=== PATIENT | female | born 1990 | race Caucasian/White ===

== ENCOUNTER 2017-03-13 13:40 | Emergency (ER) | payer OTHER ==
[2017-03-13 13:46] VITALS: BP 131/73
--- NOTE | 2017-03-13 14:16 | UC ---
Skin Complaint HPI - HPI Summary HPI Summary: 26 y/o female presents to the urgent care c/o a tick bite about a week ago and another tick bite 1 month ago. Pt reports she pulled the tick off her right side of the hip. She states she has developed body aches,headache, neck pain since Saturday and she is afraid she may have lyme disease and would like tested. Patient denies seeing a rash in the past month, SOB, fever, chest pain, N/V/ D. She only has a mild rash on her left armpit with redeness and swellin. - History of Current Complaint Chief Complaint: UCGeneralIllness Time Seen by Provider: 03/13/17 13:58 Stated Complaint: TICK Hx Obtained From: Patient Hx Last Menstrual Period: 03/10/17 ?: No Onset/Duration: Gradual Onset, Lasting Days, Still Present Skin Exposure Onset/Duration: Days Ago Timing: Constant Onset Severity: Mild Current Severity: Moderate Pain Intensity: 6 Pain Scale Used: 0-10 Numeric Location: Other - RT hip tick bite x 1 week, Character: Redness Aggravating: Nothing Alleviating: OTC Meds - ibuprofen Associated Signs & Symptoms: Positive: Rash - rash over the left, headache, neck pain with rotation. Negative: Nausea, Vomiting, Numbness, Fever, Chills, Cough, Chest Pain, Throat Tightening, Joint Swelling Related History: Insect Bite/Sting - Allergy/Home Medications Allergies/Adverse Reactions: Allergies Allergy/AdvReac Type Severity Reaction Status Date / Time No Known Allergies Allergy Verified 03/13/17 13:46 Review of Systems Constitutional: Negative Skin: Rash - Left arm pit with mild swelling and pain, Other - tick bite on RT hip las week. ENT: Negative Respiratory: Negative Cardiovascular: Negative Gastrointestinal: Negative Genitourinary: Negative Motor: Negative Neurovascular: Negative Musculoskeletal: Other: - Neck pain with movement Neurological: Headache - temporal 03/09 Psychological: Negative All Other Systems Reviewed And Are Negative: Yes PMH/Surg Hx/FS Hx/Imm Hx Previously Healthy: Yes - Surgical History Surgical History: Yes Surgery Procedure, Year, and Place: Ectopic december 2013 - Family History Known Family History: Positive: Diabetes - Social History Occupation: Employed Full-time Lives: With Family Alcohol Use: Rare Substance Use Type: None Smoking Status (MU): Heavy Every Day Tobacco Smoker Amount Used/How Often: 1/2 ppd Have You Smoked in the Last Year: Yes Physical Exam Triage Information Reviewed: Yes Appearance: Well-Appearing, No Pain Distress, Well-Nourished Vital Signs: Initial Vital Signs Temp 98.7 F 03/13/17 13:42 Pulse 108 03/13/17 13:42 Resp 20 03/13/17 13:42 BP 131/73 03/13/17 13:42 Pulse Ox 100 03/13/17 13:42 Vital Signs Reviewed: Yes Eye Exam: Normal Eyes: Positive: Conjunctiva Clear - PERRLA, EOMI ENT Exam: Normal ENT: Positive: Normal ENT inspection, Hearing grossly normal, Pharynx normal, TMs normal Dental Exam: Normal Neck: Positive: Supple, No Lymphadenopathy, Tenderness @ - at the level of C3-7 with deep palaption. no swelling or erythema noted. Decrease ROM on flexion and extension due to pain. Negative babinski sign. Respiratory Exam: Normal Respiratory: Positive: Chest non-tender, Lungs clear, Normal breath sounds, No respiratory distress, No accessory muscle use Cardiovascular Exam: Normal Cardiovascular: Positive: RRR, No Murmur, Pulses Normal Abdominal Exam: Normal Abdomen Description: Positive: Nontender, No Organomegaly, Soft. Negative: CVA Tenderness (R), CVA Tenderness (L) Bowel Sounds: Positive: Present Musculoskeletal Exam: Normal Musculoskeletal: Positive: Strength Intact, ROM Intact, No Edema Neurological Exam: Normal Neurological: Positive: Alert, Muscle Tone Normal Psychological Exam: Normal Skin: Positive: Other - RT side of hip with point erythema s/p tick bite. Positive mild eruption with discrete erythema and swelling and tenderness on palpation on left arm pit, tender lymph nodes. Course/Dx - Course Course Of Treatment: Tick bite x 1 week and 1 month ago, With OLMOS and neck pain and stiffness. Hx obtained. PE abnormal findngs:at the level of C3-7 with deep palaption. no swelling or erythema noted. Decrease ROM on flexion and extension due to pain. Negative babinski sign. Also RT side of hip with point erythema s/p tick bite. Positive mild eruption with discrete erythema and swelling and tenderness on palpation on left arm pit, tender lymph nodes. Pt given Ibuprofen 800mg PO once in the urgent care to alleviate OLMOS, Pt tolerated well medication and OLMOS decrease to 5/10. Blood ordered for Lyme serology. Pt with Hx of 2 episodes of tick bites in the past month, does not recall bull's eye rash. Today witn OLMOS, myalgias, neck pain and stiffness. Pt Rx Doxycicline 100mg PO BID x 14 days and advised to flu serology results with PCP for further evaluation and treatment. Also Rx ibuprofen 800mg PO q8hrs prn to alleviate OLMOS. and bacitracin ointment for rash in the left armpit. Pt advised if symptoms do not improve to return to the urgent care of the PCP for further evaluation and treatment.Pt understood and agreed - Differential Diagnoses - Skin Complaint Differential Diagnoses: Cellulitis, Lymphangitis, Tick Born Illness, Urticaria, Other - lyme disease - Diagnoses Provider Diagnoses: Headache, neck pain, rash s/p tick bite. Discharge - Discharge Plan Condition: Stable Disposition: HOME Prescriptions: Bacitracin OINTMENT* 1 applic TOPICAL TID #1 tube DOXYcycline CAP(*) [DOXYcycline 100MG CAP(*)] 100 mg PO BID #28 cap Ibuprofen TAB* [Motrin TAB* 800 MG] 800 mg PO Q6H #5 tab Patient Education Materials: Lyme Disease (ED) Referrals: No Primary Care Phys,NOPCP [Primary Care Provider] - [facility]Outside] - 1 Week Additional Instructions: Please take medication as directed. Make an appt with a PCP. Call the physician referral center to make an appt with a PCP and f/u on Lyme serology and further evaluation and treatment. If symptoms worsen or do not improve please return to the urgent care or the PCP.
[2017-03-13] MEDS ORDERED: Ibuprofen TAB* 400 MG PO ONE (14:21)
== END 2017-03-13 15:15 | disposition home or self-care (01) ==
LOC: UCEAST 13:40
DX: S70.261A Insect bite (nonvenomous), right hip, initial encounter (principal); W57.XXXA Bitten or stung by nonvenomous insect and other nonvenomous arthropods, initial encounter; Y92.9 Unspecified place or not applicable; F17.210 Nicotine dependence, cigarettes, uncomplicated; R51 Headache; M54.2 Cervicalgia; R21 Rash and other nonspecific skin eruption
CPT/HCPCS: 86618; 99212; A9270-GY; G0463

== ENCOUNTER 2017-03-14 21:22 | Emergency (ER) | payer OTHER ==
[2017-03-14 23:41] VITALS: BP 125/73
[2017-03-14] MEDS ORDERED: NS 0.9% 1000 ML* 1,000 ML IV ONE (23:44)
[2017-03-14] MEDS ORDERED: Ondansetron INJ* 2 MG/ML VIAL IV ONE (23:44)
[2017-03-14] MEDS ORDERED: Ketorolac INJ* 30 MG/ML 1 ML VIAL IV ONE (23:44)
[2017-03-15 00:32] LABS: ALT 6 U/L (7-52); AST 11 U/L (13-39); Alkaline Phosphatase 56 U/L (34-104); Anion Gap 11 mmol/L (2-11); BUN/Creatinine Ratio 8.2 (8-20); Blood Urea Nitrogen 5 mg/dL (6-24); CO2 Carbon Dioxide 22 mmol/L (22-32); Calcium 9.3 mg/dL (8.6-10.3); Chloride 103 mmol/L (101-111); EGFR African American 152.5 (>60); EGFR Non-African American 118.6 (>60); Globulin 3.3 g/dL (2-4); Glucose 106 mg/dL (70-100); Hematocrit 38 % (35-47); Hemoglobin 12.6 g/dl (12.0-16.0); Mean Corpuscular HGB Conc 34 g/dl (31-36); Mean Corpuscular Hemoglobin 29 pg (27-31); Mean Corpuscular Volume 88 fL (80-97); Mean Platelet Volume 11 um3 (7.4-10.4); Potassium 3.5 mmol/L (3.5-5.0); Red Blood Count 4.29 10^6/ul (4.0-5.4); Red Cell Distribution Width 14 % (10.5-15); Sodium 136 mmol/L (133-145); Total Protein 7.3 g/dL (6.4-8.9); White Blood Count 11.2 10^3/ul (3.5-10.8)
--- NOTE | 2017-03-15 00:55 | ED ---
Alex De Guzman Benjamin, scribed for Ellis Walter MD on 03/14/17 at 2355 . Headache - HPI Summary HPI Summary: 26yo female comes to ED with severe OLMOS since last Saturday. Pt states that her OLMOS has been worsening. Pt also reports having pain in eyes, and that her neck and knee has been bothering her. Pt went to her chiropractor earlier this week, and was advised to get checked out for lymes dz. Pt went to yesterday, was rx'ed with doxcylcine and was tested for lymes, which the result hasn't come back yet. Pt reports N/V since taking doxycycline. Also reports dizziness and lightheadedness. She had a fever earlier today, but not currently. Denies having similar symptoms in the past. - History Of Current Complaint Chief Complaint: EDHeadache Stated Complaint: HEAD PAIN Time Seen by Provider: 03/14/17 23:41 Hx Obtained From: Patient Hx Last Menstrual Period: 03/10/17 Onset/Duration: Gradual Onset, Started days ago, Still Present, Worse Since Initially Headache Was: Moderate Currently Pain Is: Severe Timing: Constant Character: Unable To Describe Location of Headache: Diffuse Aggravating Factor: Nothing Allevating Factors: Nothing Associated Signs And Symptoms: Dizziness, Nausea, Vomiting, Fever, Neck Pain - Allergies/Home Medications Allergies/Adverse Reactions: Allergies Allergy/AdvReac Type Severity Reaction Status Date / Time No Known Allergies Allergy Verified 03/13/17 13:46 PMH/Surg Hx/FS Hx/Imm Hx Endocrine/Hematology History: Denies: Hx Diabetes, Hx Thyroid Disease Cardiovascular History: Denies: Hx Hypertension, Hx Pacemaker/ICD Respiratory History: Denies: Hx Asthma, Hx Chronic Obstructive Pulmonary Disease (COPD) GI History: Denies: Hx Ulcer Sensory History: Denies: Hx Hearing Aid Psychiatric History: Denies: Hx Panic Disorder - Surgical History Surgery Procedure, Year, and Place: Ectopic december 2013 Infectious Disease History: No Infectious Disease History: Denies: Hx Clostridium Difficile, Hx Hepatitis, Hx Human Immunodeficiency Virus (HIV), Hx of Known/Suspected MRSA, Hx Shingles, Hx Tuberculosis, Traveled Outside the [place] in Last 30 Days - Family History Known Family History: Positive: None, Diabetes - Social History Occupation: Employed Full-time Lives: With Family Alcohol Use: Rare Substance Use Type: Reports: None Smoking Status (MU): Heavy Every Day Tobacco Smoker Amount Used/How Often: 1/2 ppd Have You Smoked in the Last Year: Yes Review of Systems Positive: Fever Positive: Photophobia, Other - pain in eyes ENT: Negative Cardiovascular: Negative Respiratory: Negative Positive: Vomiting, Diarrhea Genitourinary: Negative Musculoskeletal: Negative Skin: Negative Neurological: Other - dizziness and lightheadedness Positive: Headache Psychological: Normal All Other Systems Reviewed And Are Negative: Yes Physical Exam Triage Information Reviewed: Yes Vital Signs On Initial Exam: Initial Vitals Temp Pulse Resp BP Pulse Ox 98.5 F 91 18 129/76 100 03/14/17 21:26 03/14/17 21:26 03/14/17 21:26 03/14/17 21:26 03/14/17 21:26 Vital Signs Reviewed: Yes Appearance: Positive: Well-Appearing, No Pain Distress Skin: Positive: Warm Head/Face: Positive: Normal Head/Face Inspection Eyes: Positive: EOMI, CHINTAN, Conjunctiva Clear ENT: Positive: Hearing grossly normal Neck: Positive: Supple, Nontender Respiratory/Lung Sounds: Positive: Breath Sounds Present Cardiovascular: Positive: RRR Neurological: Positive: Sensory/Motor Intact, Alert, Oriented to Person Place, Time, CN Intact II-III, Normal Gait Psychiatric: Positive: Affect/Mood Appropriate Diagnostics - Vital Signs Vital Signs Temp Pulse Resp BP Pulse Ox 03/14/17 23:30 70 125/73 97 03/14/17 23:27 81 99 03/14/17 23:25 126/77 03/14/17 21:26 98.5 F 91 18 129/76 100 - Laboratory Lab Results: Lab Results 03/14/17 03/14/17 03/14/17 Range/Units 23:50 23:50 23:50 WBC 11.2 H (3.5-10.8) 10^3/ul RBC 4.29 (4.0-5.4) 10^6/ul Hgb 12.6 (12.0-16.0) g/dl Hct 38 (35-47) % MCV 88 (80-97) fL MCH 29 (27-31) pg MCHC 34 (31-36) g/dl RDW 14 (10.5-15) % Plt Count 144 L (150-450) 10^3/ul MPV 11 H (7.4-10.4) um3 Neut % (Auto) 79.1 (38-83) % Lymph % (Auto) 11.4 L (25-47) % Walton % (Auto) 9.1 H (1-9) % Eos % (Auto) 0.2 (0-6) % Baso % (Auto) 0.2 (0-2) % Absolute Neuts (auto) 8.8 H (1.5-7.7) 10^3/ul Absolute Lymphs (auto) 1.3 (1.0-4.8) 10^3/ul Absolute Monos (auto) 1.0 H (0-0.8) 10^3/ul Absolute Eos (auto) 0 (0-0.6) 10^3/ul Absolute Basos (auto) 0 (0-0.2) 10^3/ul Absolute Nucleated RBC 0 10^3/ul Nucleated RBC % 0 Sodium 136 (133-145) mmol/L Potassium 3.5 (3.5-5.0) mmol/L Chloride 103 (101-111) mmol/L Carbon Dioxide 22 (22-32) mmol/L Anion Gap 11 (2-11) mmol/L BUN 5 L (6-24) mg/dL Creatinine 0.61 (0.51-0.95) mg/dL Est GFR ( Amer) 152.5 (>60) Est GFR (Non-Af Amer) 118.6 (>60) BUN/Creatinine Ratio 8.2 (8-20) Glucose 106 H (70-100) mg/dL Lactic Acid 0.6 (0.5-2.0) mmol/L Calcium 9.3 (8.6-10.3) mg/dL Total Bilirubin 0.40 (0.2-1.0) mg/dL AST 11 L (13-39) U/L ALT 6 L (7-52) U/L Alkaline Phosphatase 56 (34-104) U/L Total Protein 7.3 (6.4-8.9) g/dL Albumin 4.0 (3.2-5.2) g/dL Globulin 3.3 (2-4) g/dL Albumin/Globulin Ratio 1.2 (1-3) Beta HCG, Quant < 0.60 mIU/mL Result Diagrams: 03/14/17 23:50 03/14/17 23:50 Lab Statement: Any lab studies that have been ordered have been reviewed, and results considered in the medical decision making process. - CT CT Brain CT Interpretation: No Acute Changes CT Interpretation Completed By: Radiologist Re-Evaluation - Re-Evaluation First Eval Change: Improved - results d/w pt Headache Course/Dx - Diagnoses Provider Diagnoses: Headache Discharge - Discharge Plan Condition: Improved Disposition: HOME Patient Education Materials: Blurred Vision (ED), General Headache (ED) Referrals: No Primary Care Phys,NOPCP [Primary Care Provider] - The documentation as recorded by the Alex santiago Benjamin accurately reflects the service I personally performed and the decisions made by me, Ellis Walter MD.
--- NOTE | 2017-03-15 08:02 | RAD ---
Indication: Headache, dizziness, lightheadedness. Symptoms for 4 days. Comparison: No relevant prior exams available on the [facility] PACS for comparison. Technique: Noncontrast CT vertex of skull through foramen magnum. Report: Normal cerebral sulci, ventricles, and basal cisterns for age. Negative for concepcion matter white matter obscuration, intra or extra-axial hemorrhage, or mass effect. Calcification of the pineal gland and choroid plexus noted without concern. Unremarkable orbital contents. No suspicious lesion of the calvarium or skull base evident. Clear visualized paranasal sinuses and mastoid air spaces. IMPRESSION: Negative unenhanced head CT.
== END 2017-03-15 02:20 | disposition home or self-care (01) ==
LOC: ED 21:22
DX: R51 Headache (principal); F17.210 Nicotine dependence, cigarettes, uncomplicated
CPT/HCPCS: 36415; 70450; 80053; 83605; 84702; 85025; 96360; 96374; 96375; 99282; J1885; J2405

== ENCOUNTER 2019-01-15 08:40 | Emergency (ER) | payer BC, OTHER ==
[2019-01-15 09:25] VITALS: BP 124/74
--- NOTE | 2019-01-15 09:32 | UC ---
General HPI - HPI Summary HPI Summary: 28 yo female c/o sudden episode dizziness while sitting at work this morning. Didn't pass out, but describes tunnel vision. [place] heart racing, difficult to breath. Has had periodic dizzy episodes over the last few months, unable to quantify exactly. Not usually this bad, but has been this bad at least once. No recent fever / chills / illness. No n/v/d, but felt associated GI upset when dizziness started. No rash. No h/a (other than dizzy), no ear / vision issues, other than noted above. Periods very heavy. + tobacco x approx 3 cig / day, interested in quitting but reports that she needs help. Will check with her pcp. Reviewed medications, took zoloft a couple days ago, but in the past is not sure if dizzy episodes have correlated with zoloft. Drank coffee this morning, did not eat. No known family hx of similar, including mvp. - History of Current Complaint Chief Complaint: UCDizziness Stated Complaint: DIZZY Hx Obtained From: Patient Hx Last Menstrual Period: 1 month ago Pain Intensity: 0 - Allergy/Home Medications Allergies/Adverse Reactions: Allergies Allergy/AdvReac Type Severity Reaction Status Date / Time doxycycline AdvReac Severe Vomiting Verified 01/15/19 08:56 Home Medications: Home Medications ALPRAZolam TAB* [Xanax TAB*] 0.25 mg PO Q6H PRN 01/15/19 [History Confirmed ] Bupropion XL* [Wellbutrin XL *] 300 mg PO DAILY 01/15/19 [History Confirmed ] Sertraline* [Zoloft*] 25 mg PO DAILY 01/15/19 [History Confirmed 01/15/19] PMH/Surg Hx/FS Hx/Imm Hx Previously Healthy: Yes - Surgical History Surgical History: Yes Surgery Procedure, Year, and Place: Ectopic december 2013 - Family History Known Family History: Positive: None, Diabetes - Social History Alcohol Use: Rare Substance Use Type: None Smoking Status (MU): Heavy Every Day Tobacco Smoker Amount Used/How Often: 1-2 cig per day (was at 1/2 PPD) Have You Smoked in the Last Year: Yes Review of Systems All Other Systems Reviewed And Are Negative: Yes Constitutional: Positive: Other - see hpi Skin: Positive: Negative Eyes: Positive: Other - see hpi ENT: Positive: Other - see hpi Respiratory: Positive: Other Cardiovascular: Positive: Other - see hpisee hpi Gastrointestinal: Positive: Other - see hpi Genitourinary: Positive: Other - see hpi Motor: Positive: Other - see hpi Neurovascular: Positive: Other - see hpi Musculoskeletal: Positive: Other: - see hpi Neurological: Positive: Other - see hpi Psychological: Positive: Other - see hpi Is Patient Immunocompromised?: No Physical Exam Triage Information Reviewed: Yes Appearance: Well-Nourished Vital Signs: Initial Vital Signs Temp 98.3 F 01/15/19 08:47 Pulse 94 01/15/19 08:47 Resp 16 01/15/19 08:47 BP 132/81 01/15/19 08:47 Pulse Ox 100 01/15/19 08:47 Vital Signs Reviewed: Yes Eye Exam: Normal ENT: Positive: Pharynx normal, TM dull Neck exam: Normal Neck: Positive: Supple, Nontender, No Lymphadenopathy Respiratory Exam: Normal Respiratory: Positive: Chest non-tender, Lungs clear, Normal breath sounds, No respiratory distress, No accessory muscle use Cardiovascular Exam: Other - Systolic click ? When leaning forward with deep breath, feels dizzy Cardiovascular: Positive: RRR, Pulses Normal, Brisk Capillary Refill Abdominal Exam: Normal Abdomen Description: Positive: Nontender Musculoskeletal Exam: Normal Musculoskeletal: Positive: Strength Intact Neurological Exam: Normal - cn 1-12 grossly present includ + senst smell to alc swab Psychological Exam: Normal - conversing easily and appropriately Skin Exam: Normal Course/Dx - Course Course Of Treatment: Reviewed ekg, nsr, no old for comp. See meditech. UCg neg, urine dip unremark. Orthost ddid not drop BS 83mg / dl (no breakfast). Given po fluids here, will be able to eat. Blood work obtained. F/u pcp. Consider holter mon and / or echocardiogram? Will check with pcp re tobacco cessation assistance. - Diagnoses Provider Diagnosis: Dizzy, Palpitations Discharge - Sign-Out/Discharge Documenting (check all that apply): Patient Departure All imaging exams completed and their final reports reviewed: No Studies - Discharge Plan Condition: Stable Disposition: HOME Patient Education Materials: Heart Palpitations (ED), How to Stop Smoking (ED) , Dizziness (ED) Forms: *Work Release Referrals: Eileen Arias MD [Medical Doctor] - No Primary Care Phys,NOPCP [Primary Care Provider] - Additional Instructions: Follow up with Dr. Arias next week, if possible. Meanwhile, go to the Emergency Department for worse or new problems. Blood work in the lab: cbc bmp magnesium tsh - Billing Disposition and Condition Condition: STABLE Disposition: Home
[2019-01-15 15:50] LABS: ABS Basophils 0 10^3/ul (0-0.2); ABS Eosinophils 0.1 10^3/ul (0-0.6); ABS Lymphocytes 1.8 10^3/ul (1.0-4.8); ABS Monocytes 0.4 10^3/ul (0-0.8); ABS Neutrophils 4.4 10^3/ul (1.5-7.7); ABS Nucleated RBC 0 10^3/ul; Eosinophil % 1.1 %; Hematocrit 44 % (33-41); Hemoglobin 14.3 g/dL (12.0-16.0); Lymphocyte % 27.2 %; Mean Corpuscular HGB Conc 33 g/dL (31-36); Mean Corpuscular Hemoglobin 30 pg (27-31); Mean Corpuscular Volume 90 fL (80-97); Mean Platelet Volume 10.8 fL (7.4-10.4); Nucleated Red Blood Cells % 0.2; Platelet Count 172 10^3/uL (150-450); Red Blood Count 4.83 10^6 /uL (3.70-4.87); Red Cell Distribution Width 14 % (10.5-15); White Blood Count 6.7 10^3/uL (3.5-10.8)
[2019-01-15 15:57] LABS: Calcium 9.3 mg/dL (8.6-10.3)
[2019-01-15 16:03] LABS: BUN/Creatinine Ratio 12.5 (8-20); EGFR African American 133.7 (>60); EGFR Non-African American 110.5 (>60)
[2019-01-15 16:17] LABS: TSH (Thyroid Stimulating Horm) 1.36 mcIU/mL (0.34-5.60)
[2019-01-15 19:35] LABS: Magnesium 1.9 mg/dL (1.9-2.7)
== END 2019-01-15 11:03 | disposition home or self-care (01) ==
LOC: UCEAST 08:40
DX: R42 Dizziness and giddiness (principal); R00.2 Palpitations; Z32.02 Encounter for pregnancy test, result negative; Z88.1 Allergy status to other antibiotic agents; F17.210 Nicotine dependence, cigarettes, uncomplicated
CPT/HCPCS: 36415; 80048; 81003; 83735; 84443; 84702; 85025; 93005; 99211; G0463

== ENCOUNTER 2019-01-26 07:07 | Emergency (ER) | payer BC ==
[2019-01-26 07:22] VITALS: BP 142/81
[2019-01-26] MEDS ORDERED: Amoxicillin/Clavulanate TAB* 875 MG PO ONE (07:35)
[2019-01-26] MEDS ORDERED: Tetan/Diph/Pertus SYR(Tdap)* 0.5 ML SYR(BOOSTRIX) use SYR IM ONE (07:35)
--- NOTE | 2019-01-26 08:07 | UC ---
Minor Trauma HPI - HPI Summary HPI Summary: 28-year-old female presents to urgent care after falling in her shower earlier this morning. She sustained injury to her teeth, lips, right index finger and left hip. She denies any severe headache, nausea vomiting. She is able to ambulate normally. There is a laceration on her right index finger. She did not lose consciousness and this was a mechanical fall. - History of Current Complaint Chief Complaint: UCGeneralIllness Stated Complaint: FINGER,HEAD INJURY Time Seen by Provider: 01/26/19 07:28 Hx Obtained From: Patient Hx Last Menstrual Period: 1 month ago Pain Intensity: 9 - Allergies/Home Medications Allergies/Adverse Reactions: Allergies Allergy/AdvReac Type Severity Reaction Status Date / Time doxycycline AdvReac Severe Vomiting Verified 01/26/19 07:22 PMH/Surg Hx/FS Hx/Imm Hx Previously Healthy: Yes - Surgical History Surgical History: Yes Surgery Procedure, Year, and Place: Ectopic december 2013 - Family History Known Family History: Positive: None, Diabetes - Social History Lives: With Family Alcohol Use: Rare Substance Use Type: None Smoking Status (MU): Heavy Every Day Tobacco Smoker Amount Used/How Often: 1-2 cig per day (was at 1/2 PPD) Have You Smoked in the Last Year: Yes Review of Systems All Other Systems Reviewed And Are Negative: Yes Constitutional: Negative: Fever Skin: Positive: Other - Laceration ENT: Positive: Other - A feeling of loosened teeth Respiratory: Positive: Negative Cardiovascular: Positive: Negative Gastrointestinal: Negative: Abdominal Pain Motor: Negative: Decreased ROM Musculoskeletal: Positive: Other: - Bruise to the left hip, swelling to the right index finger Physical Exam Appearance: Well-Appearing, No Pain Distress, Well-Nourished Vital Signs: Initial Vital Signs Temp 98.7 F 01/26/19 07:18 Pulse 88 01/26/19 07:18 Resp 20 01/26/19 07:18 BP 142/81 01/26/19 07:18 Pulse Ox 100 01/26/19 07:18 Eye Exam: Normal ENT: Positive: Other - Dentition without any loosening, discoloration. No nasal injury. 1 cm midline buccal surface laceration to the lower lip Neck: Positive: Supple, Nontender Respiratory: Positive: Lungs clear Cardiovascular: Positive: RRR Abdomen Description: Positive: Nontender, Soft Musculoskeletal: Positive: Other: - Contusion with ecchymosis to the left greater trochanter. Middle phalanx of the right index finger is swollen with a 8 mm puncture wound laceration. Appears to have possibly been made by a tooth Neurological: Positive: Alert, Muscle Tone Normal, Other: - Normal gait Skin Exam: Other - laceration and contusion as above Procedures - Procedure Summary Procedure Summary: Wound care: The wound of the right index finger was washed under the sink with soap and water extensively by the patient. It was dressed with a Band-Aid. The index finger was alysa taped to the adjacent long finger. Diagnostics - Radiology right index finger Radiology Interpretation Completed By: Radiologist Summary of Radiographic Findings: No acute osseous injury Minor Trauma Course/Dx - Course Course Of Treatment: Patient went for lunch hour and injury to the left hip, lower lip and upper teeth, right index finger. It appears as though there was a tooth injury to the index finger. This was irrigated extensively under the sink and cleaned with soap. She was given a dose of Augmentin here. Her tetanus is up-to-date. X-ray was negative. She'll continue on antibiotics and dressed with bacitracin. Wound precautions given. - Differential Dx/Diagnosis Differential Diagnosis/HQI/PQRI: Contusion(s), Fracture, Hematoma(s), Laceration (s) Provider Diagnosis: Human bite of finger, Contusion of hip, left, Laceration of lower lip, Fall in (into) shower or empty bathtub, initial encounter Discharge - Sign-Out/Discharge Documenting (check all that apply): Patient Departure All imaging exams completed and their final reports reviewed: Yes - Discharge Plan Condition: Improved Disposition: HOME Prescriptions: Amoxicillin/Clavulanate TAB* [Augmentin TAB 875*] 875 mg PO BID #14 tab Patient Education Materials: Human Bite (ED), Contusion in Adults (ED) Referrals: [facility] [Outside] [facility] [Outside] Additional Instructions: Continue to clean finger with soap and water and dressed with bacitracin and a Band-Aid twice daily. Return with increased redness/swelling in the finger, drainage from the wound, red streaking up the hand, worse or other concerns. Take Tylenol or ibuprofen as needed for discomfort. Ice to sore area of the hip. - Billing Disposition and Condition Condition: IMPROVED Disposition: Home - Attestation Statements Document Initiated by Scribe: No
== END 2019-01-26 08:10 | disposition home or self-care (01) ==
LOC: UCEAST 07:07
DX: S01.511A Laceration without foreign body of lip, initial encounter (principal); S61.210A Laceration without foreign body of right index finger without damage to nail, initial encounter; S70.02XA Contusion of left hip, initial encounter; W17.89XA Other fall from one level to another, initial encounter; W50.3XXA Accidental bite by another person, initial encounter; Y92.002 Bathroom of unspecified non-institutional (private) residence as the place of occurrence of the external cause; Z23 Encounter for immunization; Z88.1 Allergy status to other antibiotic agents; F17.210 Nicotine dependence, cigarettes, uncomplicated
CPT/HCPCS: 73140; 90715; 99212; A9270-GY; G0463

== ENCOUNTER 2019-03-29 21:06 | Emergency (ER) | payer BC ==
--- OUTSIDE RECORDS SUMMARY | 2019-03-29 21:12 | XMS REPORT | Continuity of Care Document ---
:1990 External Reference #:[id number] Author Name Shivam Lorenzo Care Team Providers Name Role Phone Eileen Arias MD Primary Care Physician Unavailable Payers Date Identification Numbers Payment Provider Subscriber Policy Number: [id number] [employer] Jaci Haney PayID: [id number] [address] [address] [place] [address] Effective: 2018 Policy Number: [id number] Medicaid Jaci Haney Expires: 2018 Group Name: 1 1 [address] PayID: [id number] [place] [address] Expires: 2018 Policy Number: [id number] [place] Jaci Haney Group Name: [id number] [address] PayID: [id number] [place] [address] Problems Active Problems Provider Date Nondisplaced fracture of middle phalanx of [place] MD Onset: 2018 right index finger, initial encounter for closed fracture Disorder of shoulder Bruce Nagel M.D. Onset: 03/08/2015 Family History Date Family Member(s) Observation Comments General Cancer General Diabetes Type II Father Alive And Well age 48 Mother Alive And Well age 47 Siblings 1 First Sister Alive And Well age 25 Social History Type Date Description Comments Sex Unknown Lives With Boyfriend and his two children age 12 and 15 Occupation [employer]ist [employer], [employer] ETOH Use Drinks 2 Alcoholic Beverages Per Week Tobacco Use Start: Unknown End: Patient is a former 1/2 PPD age 15 - 26 Unknown smoker Recreational Drug Use Denies Drug Use Smoking Status Reviewed: 03/09/19 Patient is a former 1/2 PPD age 15 - 26 smoker Exercise Type/Frequency Exercises regularly Allergies, Adverse Reactions, Alerts Active Allergies Reaction Severity Comments Date Doxycycline vomiting 06/12/2018 Inactive Allergies NKDA 03/08/2015 Medications Active Medications SIG Qnty Indications Ordering Date Provider Fexofenadine HCL one po daily 30tabs J30.9 Jimena Mera MD 03/09/2019 180mg Tablets Proair HFA 2 inhalations 8.500gm J45.991 Jimena Mera MD 03/09/2019 every 4 hours as 108(90Base) mcg/Act needed for Aerosol cough/wheezing Fluticasone 2 sprays each 16gm J30.9 Jimena Mera MD 03/09/2019 Propionate nostril every day 50mcg/Act as needed Suspension Venlafaxine HCL ER 1 by mouth every 30caps F41.9 [facility] 01/29/2019 day Mina Arias 75mg Caps ER 24HR Bupropion 1 by mouth every 30tabs F41.9 [facility] 01/29/2019 Hydrochloride ER day Mina Arias (XL) 150mg Tablets ER 24HR Alprazolam take 1-2 tablets 20tabs 1.9 [facility] 11/21/2018 0.25mg by mouth daily as Mina Arias Tablets needed, maximum daily dose of 2 Multivitamin Adults [facility] 06/12/2018 Mina Arias Tablets History Medications Bupropion 1 by mouth 30tabs F41.9 [facility], 11/21/2018 - Hydrochloride ER (XL) every day M.D. 01/29/2019 300mg Tablets ER 24HR Bupropion HCL ER (XL) 1 by mouth 30tabs 1.9 [facility], 2018 - every day M.D. 11/21/2018 300mg Tablets ER 24HR Sertraline HCL 1/2 by mouth 30tabs 1.9 [facility], 09/04/2018 - 50mg every day M.D. 11/21/2018 Tablets Bupropion HCL ER (XL) 1 by mouth 30tabs 1.9 [facility] [place], 2017 - every day M.D. 10/17/2018 150mg Tablets ER 24HR Sertraline HCL 1 by mouth 60tabs [facility] [place], 08/05/2018 - 25mg every day for 2 M.D. 09/04/2018 Tablets weeks, then 2 by mouth once daily. If it makes you anxious, reduce pill by half No Active Medications Unknown 06/12/2018 - 06/12/2018 Naproxen Sodium 1 tablet 2 60tabs 726.0 Bruce Greenino, 03/16/2015 - 550mg times a day, M.D. 06/12/2018 Tablets take with food Tramadol HCL 1 tabs by mouth 60tabs 726.0 Bruce Shona, 03/16/2015 - 50mg Tablets q4-6 hours as M.D. 06/12/2018 needed pain No Active Medications Unknown 03/08/2015 - 03/16/2015 Vital Signs Date Vital Result Comment 03/09/2019 11:59am Height 69 inches 5'9" Weight 201.38 lb Heart Rate 82 /min BP Systolic 118 mmHg BP Diastolic 80 mmHg Body Temperature 97.9 F O2 % BldC Oximetry 98 % BMI (Body Mass Index) 29.7 kg/m2 02/03/2019 8:00am Height 69 inches 5'9" Weight 190.00 lb Heart Rate 72 /min BP Systolic 100 mmHg BP Diastolic 64 mmHg Respiratory Rate 12 /min Pain Level 3 BMI (Body Mass Index) 28.1 kg/m2 01/29/2019 10:47am Height 68 inches 5'8" Weight 198.00 lb Heart Rate 76 /min BP Systolic Sitting 120 mmHg BP Diastolic Sitting 76 mmHg O2 % BldC Oximetry 98 % BMI (Body Mass Index) 30.1 kg/m2 11/21/2018 1:05pm Height 68 inches 5'8" Weight 190.00 lb Heart Rate 97 /min BP Systolic Sitting 132 mmHg BP Diastolic Sitting 76 mmHg O2 % BldC Oximetry 98 % BMI (Body Mass Index) 28.9 kg/m2 10/17/2018 1:17pm Height 68 inches 5'8" Weight 190.00 lb Heart Rate 80 /min BP Systolic Sitting 122 mmHg BP Diastolic Sitting 71 mmHg O2 % BldC Oximetry 95 % BMI (Body Mass Index) 28.9 kg/m2 09/04/2018 12:58pm Height 68 inches 5'8" Weight 190.00 lb Heart Rate 71 /min BP Systolic Sitting 131 mmHg BP Diastolic Sitting 80 mmHg O2 % BldC Oximetry 97 % BMI (Body Mass Index) 28.9 kg/m2 08/04/2018 12:58pm Height 68 inches 5'8" Weight 185.00 lb Heart Rate 81 /min BP Systolic Sitting 127 mmHg BP Diastolic Sitting 76 mmHg O2 % BldC Oximetry 99 % BMI (Body Mass Index) 28.1 kg/m2 06/12/2018 2:11pm Height 68 inches 5'8" Weight 186.00 lb Heart Rate 70 /min BP Systolic Sitting 120 mmHg BP Diastolic Sitting 79 mmHg Body Temperature 97.7 F O2 % BldC Oximetry 96 % BMI (Body Mass Index) 28.3 kg/m2 03/16/2015 9:45am Height 68 inches 5'8" Weight 170.00 lb Pain Level 8 BMI (Body Mass Index) 25.8 kg/m2 03/08/2015 1:36pm Height 68 inches 5'8" Weight 175.00 lb Heart Rate 86 /min BP Systolic Sitting 119 mmHg BP Diastolic Sitting 77 mmHg Pain Level 10 BMI (Body Mass Index) 26.6 kg/m2 Procedures Date Code Description Status 02/03/2019 91992 Fingersplint Application Completed 03/26/2018 78424 I&D Abscess Simple Completed Encounters Type Date Location Provider Dx Diagnosis Office Visit 02/03/2019 [facility] [place], S62.650A Nondisp fx of 8:00a Services Of middle phalanx of [facility] right index finger, init Office Visit 01/29/2019 Javan Arellano F41.9 Anxiety disorder, 10:40a Matthieu Arias M.D. unspecified Office Visit 11/21/2018 Javan Arellano F41.Sherri Anxiety disorder, 1:00p Matthieu Arias M.D. unspecified Office Visit 10/17/2018 Javan Arellano F41.Sherri Anxiety disorder, 1:00p Matthieu Arias M.D. unspecified R53.83 Other fatigue Office Visit 09/04/2018 1:00p Javan Arellano F41.9 Anxiety disorder, Matthieu Arias M.D. unspecified [facility] Office Visit 08/04/2018 1:00p Javan Arellano F41.Sherri Anxiety disorder, Matthieu Arias M.D. unspecified [facility] Office Visit 06/12/2018 2:00p Javan Arellano F41.Sherri Anxiety disorder, Medicine - Cotton, M.D. unspecified [facility] R63.5 Abnormal weight gain R05 Cough Office Visit 03/26/2018 11:00a [facility] [place], D22.5 Melanocytic nevi of trunk L70.0 Acne vulgaris L02.01 Cutaneous abscess of face Office Visit 03/16/2015 9:30a Orthopedic [facility] 726.19 Shoulder Services Of [facility] Disorders Other [facility]. 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 Spec 719.41 Pain Joint Shoulder Region Plan of Treatment 03/09/2019 - Jimena Mera MDJ30.9 Allergic rhinitis, unspecifiedNew Medication: Fexofenadine HCL 180 mg - one po dailyFluticasone Propionate 50 mcg/Act - 2 sprays each nostril every day as pkogooK46.991 Cough variant asthmaNew Medication:Proair HFA 108(90 Base) mcg/Act - 2 inhalations every 4 hours as needed for cough/wheezing
[2019-03-29 21:29] VITALS: BP 145/78
--- NOTE | 2019-03-29 21:49 | UC ---
Skin Complaint HPI - HPI Summary HPI Summary: 28-year-old female presents with complaints of redness and swelling to her right middle finger after sustaining an insect bite earlier today. She is unsure of what stung her. States that the redness and swelling have decreased from earlier today. States her finger "feels cold" although not to touch. Range of motion is slightly diminished due to the swelling. Denies swelling of the lips, tongue, throat, or difficulty breathing. - History of Current Complaint Chief Complaint: UCSkin Time Seen by Provider: 03/29/19 21:40 Stated Complaint: STING TO R. MIDDLE FINGER Hx Obtained From: Patient Hx Last Menstrual Period: 02/26/19 Pain Intensity: 8 - Allergy/Home Medications Allergies/Adverse Reactions: Allergies Allergy/AdvReac Type Severity Reaction Status Date / Time doxycycline AdvReac Severe Vomiting Verified 03/29/19 21:29 PMH/Surg Hx/FS Hx/Imm Hx Previously Healthy: Yes Psychological History: Anxiety - Surgical History Surgical History: Yes Surgery Procedure, Year, and Place: Ectopic december 2013 - Family History Known Family History: Positive: None, Diabetes - Social History Occupation: Employed Full-time Lives: With Family Alcohol Use: Rare Substance Use Type: None Smoking Status (MU): Current Every Day Smoker Amount Used/How Often: 1-2 cig per day (was at 1/2 PPD) Have You Smoked in the Last Year: Yes Review of Systems All Other Systems Reviewed And Are Negative: Yes Constitutional: Positive: Negative Skin: Positive: Other - See HPI ENT: Positive: Negative Respiratory: Positive: Negative Cardiovascular: Positive: Negative Gastrointestinal: Positive: Negative Genitourinary: Positive: Negative Motor: Negative: Weakness Neurovascular: Negative: Decreased Sensation Musculoskeletal: Positive: Decreased ROM - d/t swelling of the finger. Negative : Arthralgia Neurological: Positive: Negative Is Patient Immunocompromised?: No Physical Exam - Summary Physical Exam Summary: GENERAL APPEARANCE: Well developed, well nourished, alert and cooperative, and appears to be in no acute distress. THROAT: No swelling of the lips, tongue, or throat. Pharynx normal. No tonsilar inflammation, swelling, exudate, or lesions. Uvula midline. Airway patent. CARDIAC: Normal S1 and S2. No S3, S4 or murmurs. Rhythm is regular. There is no peripheral edema, cyanosis or pallor. Extremities are warm and well perfused. Capillary refill is less than 2 seconds. Peripheral pulses intact. LUNGS: Clear to auscultation without rales, rhonchi, wheezing or diminished breath sounds. ABDOMEN: Positive bowel sounds. Soft, nondistended, nontender. No guarding or rebound. No masses or hepatosplenomegally. MUSKULOSKELETAL: Normal muscular development. Normal gait. EXTREMITIES: Erythema and mild edema to the distal 2/3 of the right middle finger primarily the volar aspect. Capillary refill < 2 seconds. Sensation intact. No increased warmth. SKIN: Skin normal color, texture and turgor. Triage Information Reviewed: Yes Vital Signs: Initial Vital Signs Temp 97.6 F 03/29/19 21:23 Pulse 77 03/29/19 21:23 Resp 18 03/29/19 21:23 BP 145/78 03/29/19 21:23 Pulse Ox 99 03/29/19 21:23 Vital Signs Reviewed: Yes Course/Dx - Course Course Of Treatment: 28-year-old female presents with complaints of redness and swelling to her right middle finger after sustaining an insect bite earlier today. She is unsure of what stung her. States that the redness and swelling have decreased from earlier today. States her finger "feels cold" although not to touch. Range of motion is slightly diminished due to the swelling. Denies swelling of the lips, tongue, throat, or difficulty breathing. Afebrile. Vital signs stable. Patient had erythema and mild edema to the distal 2/3 of the right middle finger primarily the volar aspect. Capillary refill < 2 seconds. Sensation intact. No increased warmth. Remainder of exam was unremarkable. Recommending symptomatic treatment for a localized reaction to an insect sting including ektn-ckg-dwafoqe diphenhydramine, cold therapy, and elevation of the extremity. She is to return here or follow up with her primary care provider in 2-3 days if the symptoms are not improving. Anticipatory guidance and warning symptoms are reviewed with the patient. Verbalizes understanding and agrees with plan of care. - Differential Diagnoses - Skin Complaint Differential Diagnoses: Anaphylaxis, Cellulitis, Local Allergic Reaction - Diagnoses Provider Diagnosis: Insect sting Discharge - Sign-Out/Discharge Documenting (check all that apply): Patient Departure All imaging exams completed and their final reports reviewed: No Studies - Discharge Plan Condition: Stable Disposition: HOME Patient Education Materials: Insect Bite or Sting (ED) Referrals: Eileen Arias MD [Primary Care Provider] - 2 Days Additional Instructions: You appear to be having a localized reaction to an insect sting. Take oojb-qwe-zrppkku diphenhydramine (Benadryl) according to directions as needed for itching. Apply ice to the finger for 15-20 minutes several times a day to help reduce the swelling. Try to keep your hand elevated to also help reduce the swelling. Follow-up with your primary care provider in 2-3 days if symptoms are not improving. Seek immediate medical attention if the redness continues to spread, you have increased swelling of the finger, the finger becomes pale or blue in color, you develop any fever, have swelling of the lips, tongue, or throat, difficulty breathing, or any worsening of symptoms. - Billing Disposition and Condition Condition: STABLE Disposition: Home - Attestation Statements Provider Attestation: I was available for consult. This patient was seen by the JULIAN. The patient was not presented to , seen by or examined by va -Catrachito Yin MD
== END 2019-03-29 22:00 | disposition home or self-care (01) ==
LOC: UCEAST 21:06
DX: S60.464A Insect bite (nonvenomous) of right ring finger, initial encounter (principal); W57.XXXA Bitten or stung by nonvenomous insect and other nonvenomous arthropods, initial encounter; Y92.9 Unspecified place or not applicable; F17.210 Nicotine dependence, cigarettes, uncomplicated; F41.9 Anxiety disorder, unspecified
CPT/HCPCS: 99211; G0463

== ENCOUNTER → 2019-08-25 06:03 | Day surgery (SDC) | payer BC ==
--- NOTE | 2019-08-19 16:18 | HP ---
HISTORY AND PHYSICAL: DATE OF ADMISSION/SURGERY: 08/25/19 DATE OF OFFICE VISIT: 08/19/19 SURGEON: Steff Gordon MD.* (DICTATED BY LYDIA FORMAN) PROCEDURE: Left knee arthroscopy with partial meniscectomy, possible chondroplasty, possible synovectomy, possible plica excision. CHIEF COMPLAINT: Left knee pain. HISTORY OF PRESENT ILLNESS: Ms. Haney is a 28-year-old female with complaints of left knee pain secondary to inflammation of the infrapatellar fat pad as well as medial plica. She has elected to proceed with surgery. PAST MEDICAL HISTORY: Asthma. PAST SURGICAL HISTORY: Surgery for ectopic . CURRENT MEDICATIONS: None. ALLERGIES: DOXYCYCLINE. FAMILY HISTORY: Diabetes and cancer. SOCIAL HISTORY: She is a 28-year-old female. She lives with her partner. She does not smoke or use drugs. Uses alcohol rarely. REVIEW OF SYSTEMS: A complete 14-point review of systems was reviewed with the patient, it was all negative or noncontributory. She denies history of DVT, PE , hepatitis, HIV or anesthesia problems. PHYSICAL EXAMINATION GENERAL: She is well developed, well nourished, in no acute distress. VITAL SIGNS: She stands 69 inches tall, weighs 195 pounds. Blood pressure is 118/74, heart rate is 75. HEENT: Normocephalic, atraumatic. NECK: Supple. No palpable lymph nodes. PULMONARY: The lungs are clear to auscultation bilaterally. CARDIO: Regular rate and rhythm. Strong S1 and S2. ABDOMEN: Soft, nontender, nondistended. NEUROLOGICAL: She is alert and oriented x3. MUSCULOSKELETAL: Left lower extremity: The skin is intact. There are no open wounds or abrasions. There is a moderate effusion of the left knee with tenderness along the infrapatellar fat pad region and anterior medial joint line. Positive Apley's and Jemima's. Negative Rosa Maria's. Range of motion is 5 to 110 degrees of flexion. There is pain past 100 degrees of flexion. She has 2+ dorsalis pedis pulses. She is able to dorsiflex and plantarflex with intact sensation. ASSESSMENT AND PLAN: Ms. Haney is a 28-year-old female with complaints of left knee pain. She has elected to proceed with the left knee arthroscopy with possible partial meniscectomy, possible chondroplasty, possible synovectomy, and possible plica excision. The surgery is scheduled for 08/25/[address] Gordon discussed the risks and benefits of the surgery at today's visit and all of her questions were answered. She will follow up with Dr. Gordon 2 weeks after the surgery. LYDIA FORMAN [id number]/[facility] #: [id number] MTDRonald
[~2019-08-25 06:03] MED LIST: Buffered Lidocaine 1% SYRIN* 1 ML/SYRINGE INTRADERM ONE; Bupivacaine 0.5%* 50 ML MDV VIAL ONE; Dexamethasone IV* 4 MG/ML 1 ML (4 MG) ONE; DiMENhydriNATE IV* 50 MG/ML VIAL IV PUSH PRN; EPINEPHRINE 1 MG/ML 1 ML VIAL ONE; Ketorolac INJ* 30 MG/ML 1 ML VIAL ONE; Lactated Ringers 1000 ML Bag* 1,000 ML IV SCH; Lidocaine 2% PF * 5 ML VIAL ONE; Metoclopramide IV* 5 MG/ML 2 ML VIAL ONE; Midazolam* 1 MG/ML 2 ML VIAL (2 MG) ONE; Naloxone* 0.4 MG/ML 1 ML VIAL IV PRN; Ondansetron INJ* 2 MG/ML VIAL ONE; ceFAZolin 2 GM in NS PREMIX(*) 2 GM/100 ML BAG IVPB ONE; fentaNYL* 50 MCG/ML 2 ML VIAL (100 MCG VIAL) ONE; hydrALAZINE IV* 20 MG/ML VIAL ONE; methylPREDNISolone ACETATE 80* 80 MG/ML 1 ML VIAL ONE; oxyCODONE TAB* 5 MG TAB ONE; oxyCODONE TAB* 5 MG TAB PO PRN
[2019-08-25] MEDS: fentaNYL* 50 MCG/ML 2 ML VIAL (100 MCG VIAL) IV PRN ×4 (09:02→09:19)
[2019-08-25 10:08] VITALS: BP 133/85
--- NOTE | 2019-08-25 23:39 | OP ---
DATE OF OPERATION: 08/25/19 - [facility] DATE OF : 89 SURGEON: Steff Gordon MD. MINI BACCARAT DEALER: LYDIA Lawrence. ANESTHESIOLOGIST: Dr. Mae. ANESTHESIA: General. PRE-OP DIAGNOSIS: Left knee pain with inflammation of the infrapatellar fat pad. POST-OP DIAGNOSIS: Left knee infrapatellar fad pad impingement. OPERATIVE PROCEDURE: Left knee diagnostic arthroscopy with fat pad debridement. COMPLICATIONS: None. SPECIMENS: None. ESTIMATED BLOOD LOSS: Less than 25 cc. BRIEF HISTORY/INDICATIONS: Ms. Haney is a 28-year-old female who had a twisting injury when she fell off a trailer back in March 2019. Since that injury, she has had continued pain and feelings of catching along the anterior knee joint. MRI showed some infrapatellar fat pad edema and possibly a suprapatellar hematoma, but no obvious tear of the meniscus. The patient failed conservative treatment and had significant decreased quality of life due to pain. She elected to undergo a diagnostic arthroscopy of the left knee with possible debridement of the fat pad and/or suprapatellar scar tissue. Informed consent was obtained from the patient. She understood the risks of surgery included, but were not limited to bleeding, infection, damage to nearby structures, continued pain, need for further surgery, anesthesia complications, stroke, heart attack, blood clot, and . She wished to proceed. The patient understood she could have continued pain without any obvious abnormalities at the time of arthroscopy. She accepted this risk and wished to proceed. INTRAOPERATIVE FINDINGS: Intraoperatively, the patient had a small amount of suprapatellar scar tissue. She did have significant anterior fat pad with impingement with range of motion along the patellofemoral joint and medial joint compartment. DESCRIPTION OF PROCEDURE: Ms. Haney was identified in the preanesthesia unit. Her left lower extremity extremity was marked as the correct operative side. Informed consent was signed and placed in the chart. The patient was taken to the operating room and placed under anesthesia without difficulty. The left lower extremity was prepped and draped in the usual sterile fashion. Preop time -out was made to correctly identify the patient, side, and site. Appropriate perioperative antibiotics were given within 1 hour of incision. A 0.5 cm anterolateral portal incision was made with the 10 blade. A trocar was introduced. As soon as the light and water sources were turned on, there was immediate visualization of the suprapatellar pouch. A tour of the knee joint was performed. The suprapatellar pouch had a small amount of scar tissue visualized. The patellofemoral compartment had minimal degenerative changes. The medial gutter showed no obvious loose body or plica. The anterior joint line had a significant fat pad, which did impinge when the knee was taken through range of motion. Impingement was at the patello-femoral joint and medial joint compartments. There was significant impingement along the medial fat pad. The ACL and PCL appeared to be intact. The medial compartment showed no obvious meniscal tear and minimal degenerative changes. The knee was placed in a hhphes-ds-nosi position. There were minimal degenerative changes and no obvious meniscal tear. Under direct visualization, a medial portal incision was made with a 10-blade and carried through the capsule. A probe was introduced. Probing of the meniscus showed no obvious meniscal tears. The shaver was introduced. Suprapatellar scar tissue was carefully debrided. Next, the anterior fat pad was debrided, especially along the medial compartment where there was visible impingement with range of motion. The radiofrequency ablation wand was used to coagulate any bleeding. The knee was taken through range of motion and had no further visible impingement anteriorly. The knee was copiously irrigated with sterile saline. All instruments were removed. Incisions were closed using 3-0 nylon suture. Sterile Xeroform, 4x4s, and Webril were used to cover the incision. Chris wrap and cold pack were placed over this. The patient's anesthesia was reversed without difficulty. She was taken to the PACU in stable condition. Intended weightbearing will be weightbearing as tolerated. Intended DVT prophylaxis will be aspirin. She will follow up in 2 weeks' time for suture removal. [id number]/[facility] #: [id number] API HEALTHCARERonald
== END | disposition home or self-care (01) ==
LOC: OR 06:03
PROVIDERS: ATTEND Orthopaedic Surgery Adult Reconstructive Orthopaedic Surgery
DX: M25.862 Other specified joint disorders, left knee (principal); J45.909 Unspecified asthma, uncomplicated; F41.9 Anxiety disorder, unspecified
CPT/HCPCS: 81025; A9270-GY; J0360; J0690; J1040; J1100; J1885; J2250; J2405; J2765; J3010; J3490

== ENCOUNTER 2019-11-19 07:43 | Emergency (ER) | payer BC ==
[2019-11-19 07:56] VITALS: BP 135/91
[2019-11-19] MEDS ORDERED: Albuterol 2.5 MG/3 ML NEB.SOL* (0.083%) INH ONE (08:18)
--- NOTE | 2019-11-19 08:24 | UC ---
Respiratory Complaint HPI - HPI Summary HPI Summary: 28-year-old female comes in with a chief complaint of 2 days of upper respiratory tract infection symptoms. She has had a sore throats she has a runny nose nasal congestion. Rhinorrhea is yellow. She has a history of asthma. She used her albuterol inhaler this morning which did help some with shortness of breath. She the bronchitis type symptoms are making her shortness of breath worse. - History of Current Complaint Chief Complaint: UCGeneralIllness Stated Complaint: RESP COMPLAINT Time Seen by Provider: 11/19/19 08:18 Hx Last Menstrual Period: 10/29/19 Pain Intensity: 3 - Allergies/Home Medications Allergies/Adverse Reactions: Allergies Allergy/AdvReac Type Severity Reaction Status Date / Time doxycycline AdvReac Severe Vomiting Verified 11/19/19 07:56 Home Medications: Home Medications Albuterol HFA INHALER* [Ventolin HFA Inhaler*] 1 puff INH Q4H PRN 08/20/19 [ History Confirmed 11/19/19] Azithromyxin KALEY (NF) [Z-Kaley (Zithromax) 250 mg tabs #6] 2 tab PO .TODAY, THEN 1 DAILY #6 tab 11/19/19 [Rx] predniSONE 20 mg TAB [Deltasone 20 MG TAB*] 40 mg PO DAILY #10 tab 11/19/19 [Rx] PMH/Surg Hx/FS Hx/Imm Hx Previously Healthy: Yes Respiratory History: Asthma - Surgical History Surgical History: Yes Surgery Procedure, Year, and Place: Ectopic december 2013 - Family History Known Family History: Positive: None, Diabetes - Social History Alcohol Use: Rare Substance Use Type: None Smoking Status (MU): Current Every Day Smoker Amount Used/How Often: 1-2 cig per day (was at 1/2 PPD) Have You Smoked in the Last Year: Yes Review of Systems All Other Systems Reviewed And Are Negative: Yes Constitutional: Positive: Other - see hpi Skin: Positive: Negative Eyes: Positive: Negative ENT: Positive: Sore Throat, Nasal Discharge, Sinus Congestion, Sinus Pain/ Tenderness Respiratory: Positive: Shortness Of Breath, Cough, Other - see hpi Cardiovascular: Positive: Negative Gastrointestinal: Positive: Negative Motor: Positive: Negative Neurovascular: Positive: Negative Musculoskeletal: Positive: Negative Neurological/Mental Status: Positive: Negative Psychological: Positive: Negative Is Patient Immunocompromised?: No Physical Exam Triage Information Reviewed: Yes Appearance: No Pain Distress, Well-Nourished, Ill-Appearing - mild Vital Signs: Initial Vital Signs Temp 99.2 F 11/19/19 07:53 Pulse 100 11/19/19 07:53 Resp 19 11/19/19 07:53 BP 135/91 11/19/19 07:53 Pulse Ox 100 11/19/19 07:53 Vital Signs Reviewed: Yes Eye Exam: Normal Eyes: Positive: Conjunctiva Clear ENT: Positive: Pharyngeal erythema, Nasal congestion, Nasal drainage, TMs normal Neck: Positive: Supple Respiratory: Positive: No respiratory distress, Wheezing Cardiovascular: Positive: RRR Musculoskeletal: Positive: Strength Intact, ROM Intact Neurological: Positive: Alert Psychological: Positive: Age Appropriate Behavior Skin Exam: Normal Respiratory Course/Dx - Course Course Of Treatment: DISCUSSED VIRAL VERSES BACTERIAL INFECTIONS AND THE ROLE OF ANTIBIOTICS. THE PATIENT PREFERS TO BE ON ANTIBIOTICS AT THIS TIME. - Differential Dx/Diagnosis Provider Diagnosis: Bronchitis, Asthma Discharge ED - Sign-Out/Discharge Documenting (check all that apply): Patient Departure All imaging exams completed and their final reports reviewed: No Studies - Discharge Plan Condition: Stable Disposition: HOME Prescriptions: Azithromyxin KALEY (NF) [Z-Kaley (Zithromax) 250 mg tabs #6] 2 tab PO .TODAY, THEN 1 DAILY #6 tab predniSONE 20 mg TAB [Deltasone 20 MG TAB*] 40 mg PO DAILY #10 tab Patient Education Materials: Acute Bronchitis (ED), Asthma (ED) Forms: *Work Release Referrals: Eileen Arias MD [Primary Care Provider] - Additional Instructions: FOLLOW UP WITH YOUR DOCTOR IF NOT COMPLETELY IMPROVED. GET REEVALUATED SOONER IF NOT IMPROVED OR WORSE; SHORTNESS OF BREATH, YOU FEEL ILL OR ANY QUESTIONS OR CONCERNS. - Billing Disposition and Condition Condition: STABLE Disposition: Home
== END 2019-11-19 08:53 | disposition home or self-care (01) ==
LOC: UCEAST 07:43
DX: J45.909 Unspecified asthma, uncomplicated (principal); R09.81 Nasal congestion; R09.89 Other specified symptoms and signs involving the circulatory and respiratory systems; F17.210 Nicotine dependence, cigarettes, uncomplicated; Z88.1 Allergy status to other antibiotic agents
CPT/HCPCS: 99212; G0463